=== PATIENT | male | born 1975 | race Caucasian/White ===

== ENCOUNTER → 2020-07-15 | Outpatient (CLI) | payer BC ==
--- NOTE | 2020-07-15 11:22 | CT ---
EXAMINATION TYPE: CT brain wo con DATE OF EXAM: 07/15/2020 COMPARISON: 03/12/2011 HISTORY: headache, Localized swelling, mass, lump of head, superior aspect frontal/temporal bones CT DLP: [address] of the brain was performed. The ventricles, basal cisterns and sulci overlying the cerebral convexities demonstrate a normal appe arance. There is no evidence for intracranial hemorrhage or sulcal effacement. No mass effects are seen. Osseous calvarium is intact. If symptoms persist consider MRI as clinically warranted. IMPRESSION: 1. No acute intracranial process is seen at this time.
== END | disposition home or self-care (01) ==
LOC: RADCTMAIN 10:33
PROVIDERS: ATTEND Physician Assistant
DX: R22.0 Localized swelling, mass and lump, head (principal)
CPT/HCPCS: 70450

== ENCOUNTER → 2020-12-17 | Day surgery (SDC) | payer BC ==
[2020-12-15 11:33] VITALS: BMI 27.1
[~2020-12-17] MED LIST: LACTATED RINGERS 1,000 ML IV SCH; LIDOCAINE 1% (10MG/ML) FOR IV START INTRADERMA ONE; LIDOCAINE 1% INJ 10MG/ML (20 ML MDV) ONE; PROPOFOL 10 MG/ML 20 ML VIAL IV ONE
[2020-12-17 09:48] VITALS: TEMP 98
--- NOTE | 2020-12-17 10:14 | P.GSHP ---
History of Present Illness H&P Date: 12/17/20 Chief Complaint: GERD This a 44-year-old male who presents today for EGD. He's had issues with GERD. Past Medical History Additional Past Medical History / Comment(s): HAS BEEN HAVING EPISODES OF REFLUX AND ABD. PAIN History of Any Multi-Drug Resistant Organisms: None Reported Past Surgical History: Tonsillectomy Additional Past Surgical History / Comment(s): WISDOM TEETH REMOVED WITH ANESTHESIA Past Anesthesia/Blood Transfusion Reactions: No Reported Reaction Past Psychological History: No Psychological Hx Reported Smoking Status: Never smoker Past Alcohol Use History: Occasional Past Drug Use History: None Reported - Past Family History Mother Family Medical History: No Reported History Medications and Allergies Home Medications Medication Instructions Recorded Confirmed Type No Known Home Medications 12/15/20 12/15/20 History Allergies Allergy/AdvReac Type Severity Reaction Status Date / Time bee venom protein (honey bee) Allergy Rash/Hives Verified 12/15/20 11:29 Surgical - Exam Vital Signs Temp Pulse Resp BP Pulse Ox 98 F 70 20 127/81 98 12/17/20 09:30 12/17/20 09:30 12/17/20 09:30 12/17/20 09:30 12/17/20 09:30 - General well developed, well nourished, no distress - Eyes PERRL - ENT normal pinna - Neck no masses - Respiratory normal expansion - Cardiovascular Rhythm: regular - Abdomen Abdomen: soft, non tender Assessment and Plan Assessment: GERD. We'll perform EGD.
--- NOTE | 2020-12-17 10:21 | P.OP ---
Date of Procedure: 12/17/20 Preoperative Diagnosis: GERD Postoperative Diagnosis: Antral gastritis Esophagitis Minimal hiatal hernia Procedure(s) Performed: EGD Anesthesia: MAC Surgeon: Fabrice Rodrigez Pathology: other (Antrum, esophagus) Condition: stable Disposition: PACU Description of Procedure: Patient's placed on the endoscopy table lateral position. He received IV sedation. The gastroscope oropharynx and passed in the esophagus and stomach. Scope was then placed through the pylorus. First and second portion of the d uodenum appeared normal. Scope was then brought back the antrum this was mildly inflamed a biopsies performed. Scope was then retroflexed the remainder of the stomach appeared normal. There is a very small hiatal hernia. The GE junction was at 39 cm. The distal esophagus appeared inflamed and a biopsies performed. The proximal esophagus appeared normal. The scope was withdrawn for patient.
[2020-12-17 10:51] VITALS: BP 114/70; PULSE 62; RESP 20
--- NOTE | 2020-12-17 15:01 | NM ---
EXAMINATION TYPE: NM hepatobiliary w CCK DATE OF EXAM: 12/17/2020 COMPARISON: NONE HISTORY: Indigestion. Epigastric pain and heartburn and reflux-like symptoms per patient. TECHNIQUE: After the intravenous administration of 5.2 mCi Tc 99m Mebrofenin hepatobiliary scintigrap hy is performed. Immediate images post injection. FINDINGS: There is satisfactory initial accumulation of tracer by the liver. The gallbladder is visualized wit hin 30 minutes. The small bowel activity is noted within 20 minutes. At one hour CCK was administer ed, patient was injected with 1.77 mcg of Kinevac, and gallbladder ejection fraction is calculated at 41 %, in the normal range. Therefore there is no scintigraphic evidence of cystic or common bile du ct obstruction to suggest acute cholecystitis or gallbladder dyskinesia. IMPRESSION: Exam is within normal limits.
== END | disposition home or self-care (01) ==
LOC: ORWHC2ENDO 09:01
PROVIDERS: ATTEND Surgery
DX: K21.00 Gastro-esophageal reflux disease with esophagitis, without bleeding (principal); K29.50 Unspecified chronic gastritis without bleeding; K44.9 Diaphragmatic hernia without obstruction or gangrene; Z90.89 Acquired absence of other organs; Z98.890 Other specified postprocedural states; Z91.030 Bee allergy status
CPT/HCPCS: 88305; 78227; 43239; A9537; J2805; J2001; J2704

== ENCOUNTER → 2023-05-04 | Day surgery (SDC) | payer BC ==
[2023-05-02 15:40] VITALS: BMI 27.8
[~2023-05-04] MED LIST changes: -LIDOCAINE 1% (10MG/ML) FOR IV START INTRADERMA ONE; -LIDOCAINE 1% INJ 10MG/ML (20 ML MDV) ONE
[2023-05-04 11:27] VITALS: TEMP 97.9
--- NOTE | 2023-05-04 12:45 | P.PCN ---
Date of Procedure: 05/04/23 Procedure(s) Performed: BRIEF HISTORY: Patient is a 47-year-old pleasant white male scheduled for an elective colonoscopy as a part of evaluation change in bowel habits for the last 6 months duration. PROCEDURE PERFORMED: Colonoscopy. PREOPERATIVE DIAGNOSIS: Change in bowel habits. IV sedation per Anesthesia. PROCEDURE: After informed consent was obtained, the patient, was brought into the endoscopy unit. IV sedation was administered by Anesthesia under continuous monitoring. Digital rectal examination was normal. Initially the Olympus CF-160 flexible video colonoscope was then inserted in the rectum, gradually advanced into the cecum without any difficulty. Careful examination was performed as the scope was gradually being withdrawn. Ileocecal valve and the appendiceal orifice were visualized and appeared normal. Prep was excellent. Mucosa of the cecum, ascending colon, transverse colon, descending colon, sigmoid colon, and rectum appeared normal. Retroflexion was performed in the rectum and no lesions were seen. The patient tolerated the procedure well. IMPRESSION: Normal-appearing colon from rectum to cecum no evidence of colorectal neoplasia. RECOMMENDATIONS: Findings of this examination were discussed with the patient as well as his family.. He was advised to be a high-fiber diet and have a repeat screening colonoscopy in 10 years.
[2023-05-04 13:28] VITALS: BP 135/81; PULSE 72; RESP 16
== END ==
LOC: ORWHC2ENDO 10:48
PROVIDERS: ATTEND Internal Medicine Gastroenterology
DX: R19.4 Change in bowel habit (principal); Z79.899 Other long term (current) drug therapy
CPT/HCPCS: 45378; J2704